=== PATIENT | male | born 1985 | race African-American/Black ===

== ENCOUNTER 2018-07-04 09:27 | Inpatient (IN) | payer OTHER ==
[2018-07-04 10:00] VITALS: BMI 29.2
--- NOTE | 2018-07-04 11:19 | HP ---
COWS - Scale Resting Pulse: 1= [place] 81-100 Sweatin= Chills/Flushing Restless Observation: 5= Unable to Sit Still Pupil Size: 1= Pupils >than Normal Bone or Joint Aches: 4=Acute Joint/Muscle Pain Runny Nose/ Eye Tearin= Runny Nose/Eyes GI Upset > 30mins: 2= Nausea/Diarrhea Tremor Observation: 0= None Yawning Observation: 1= 1-2x During Session Anxiety or Irritability: 4=Extreme Anxiety Goose Flesh Skin: 0=Smooth Skin COWS Score: 21 CIWA Score - Admission Criteria OASAS Guidelines: Admission for Medically Managed Detox: Requires at least one of the followin. CIWA greater than 12 2. Seizures within the past 24 hours 3. Delirium tremens within the past 24 hours 4. Hallucinations within the past 24 hours 5. Acute intervention needed for co occurring medical disorder 6. Acute intervention needed for co occurring psychiatric disorder 7. Severe withdrawal that cannot be handled at a lower level of care (continued vomiting, continued diarrhea, abnormal vital signs) requiring intravenous medication and/or fluids 8. Admission ROS [facility] - HPI Allergies/Adverse Reactions: Allergies Allergy/AdvReac Type Severity Reaction Status Date / Time No Known Allergies Allergy Verified 07/04/18 11:31 History of Present Illness: patient here requesting detox from heroin use , reports 1 bundle x 1 year , prior benzo use x 6 years exclusively , denies IVDU , latest use yesterday , first tx episode , never in detox before , current symptoms as above. Denies OD . xanax : 6-8 mg/day , + w/d seizure 8 mo ago went to [facility] denies other illicits tobacco : occasional use etoh : denies denies fentanyl use reports used illicit methadone 60 mg 2-3 days ago PMHx : denies PShx : denies PSych : denies , denies current SI / HI . Exam Limitations: Clinical Condition - Ebola screening Have you traveled outside of the country in the last 21 days: No Have you had contact with anyone from an Ebola affected area: No Have you been sick,other than usual withdrawal symptoms: No Do you have a fever: No - Review of Systems Constitutional: See HPI EENT: reports: Tearing, Nose Congestion, Other (deniesvision problems, denies dysphagia) Respiratory: reports: Shortness of Breath Cardiac: reports: No Symptoms Reported GI: reports: See HPI : reports: No Symptoms Reported Musculoskeletal: reports: See HPI Integumentary: reports: No Symptoms Reported Neuro: reports: See HPI Endocrine: reports: No Symptoms Reported Psychiatric: reports: Orientated x3, Anxious Patient History - Smoking Cessation Smoking history: Current some day smoker Have you smoked in the past 12 months: Yes Aproximately how many cigarettes per day: 2 Hx Chewing Tobacco Use: No Initiated information on smoking cessation: No - Substances Abused Heroin Route: Inhalation Frequency: Daily Amount used: 10 bags Age of first use: 32 Date of Last Use: 07/03/18 Xanax Route: Oral Frequency: Daily Amount used: 6-8 mg. Age of first use: 28 Date of Last Use: 07/03/18 Family Disease History - Family Disease History Family History: Denies Admission Physical Exam [facility] - Vital Signs Vital Signs: Vital Signs - 24 hr 07/04/18 09:55 Temperature 99.7 F H Pulse Rate 93 H Respiratory 18 Rate Blood Pressure 132/87 - Physical General Appearance: Yes: Disheveled, Tremorous, Sweating, Anxious HEENTM: Yes: EOMI, Hearing grossly Normal, Normocephalic, Normal Voice Respiratory: Yes: Chest Non-Tender, Lungs Clear, Normal Breath Sounds Neck: Yes: No masses,lesions,Nodules, Trachea in good position Cardiology: Yes: Regular Rhythm, Regular Rate, S1, S2, Tachycardia Abdominal: Yes: Normal Bowel Sounds, Non Tender, Soft Back: Yes: Normal Inspection Musculoskeletal: Yes: full range of Motion, Other (staggering gait) Extremities: Yes: Normal Capillary Refill, Non-Tender, Tremors Neurological: Yes: Motor Strength 5/5 Integumentary: Yes: Normal Color - Diagnostic (1) Opioid dependence Current Visit: Yes Status: Acute Qualifiers: Substance use status: in withdrawal Qualified Code(s): F11.23 - Opioid dependence with withdrawal (2) Sedative dependence Current Visit: Yes Status: Acute (3) Tobacco dependence Current Visit: Yes Status: Chronic (4) Withdrawal seizures Current Visit: Yes Status: Acute Qualifiers: Complication of substance-induced condition: uncomplicated Qualified Code(s ): F19.230 - Other psychoactive substance dependence with withdrawal, uncomplicated; R56.9 - Unspecified convulsions [facility] Breath Alcohol Content Breath Alcohol Content: 0 Urine Drug Screen - Results Drug Screen Negative: No Urine Drug Screen Results: OPI-Opiates, BZO-Benzodiazepines, MTD-Methadone, FEN- Fentanyl Inpatient Rehab Admission - Rehab Decision to Admit Inpatient rehab admission?: No
[2018-07-04] MEDS ORDERED: ACETAMINOPHEN 325 MG TABLET (FP) PO PRN (11:56)
[2018-07-04] MEDS ORDERED: MENTHOL/PHENOL 1 EACH UD MM PRN (11:56)
[2018-07-04] MEDS ORDERED: IBUPROFEN 400 MG TABLET (FP) PO PRN (11:56)
[2018-07-04] MEDS ORDERED: chlordiazePOXIDE HCL 25 MG CAPSULE PO PRN (11:56)
[2018-07-04] MEDS ORDERED: MAGNESIUM HYDROX 2400MG/30ML ORAL SUSPENSION 30 ML CUP PO PRN (11:56)
[2018-07-04] MEDS ORDERED: MAGNESIUM CITRATE 300 ML BOTTLE PO PRN (11:56)
[2018-07-04] MEDS ORDERED: MAG HYDROX/AL HYDROX/SIMETH 30 ML UNIT-DOSE CUP PO PRN (11:56)
[2018-07-04] MEDS ORDERED: METHADONE HCL 10 MG TABLET (FOR DETOX USE ONLY) PO ONE ×2 (12:15→23:00)
[2018-07-04] MEDS ORDERED: TUBERCULIN PPD 5 TU/0.1ML VIAL ID ONE (13:33)
--- NOTE | 2018-07-04 13:54 | PN ---
[facility] CIWA - CIWA Score Nausea/Vomitin-Mild Nausea/No Vomiting Muscle Tremors: 3 Anxiety: 3 Agitation: 3 Paroxysmal Sweats: 1-Minimal Palms Moist Orientation: 1-Uncertain about Date Tacttile Disturbances: 0-None Auditory Disturbances: 0-None Visual Disturbances: 0-None Headache: 1-Very Mild CIWA-Ar Total Score: 13 S Progress Note (SOAP) Subjective: patient stated that he using heroin and benzo daily and purpose of this detox admission is to detox from heroin and benzo + urine tox from opiate and benzo patient has CIWA = 13 and the patient preferred valium that librium make him dizzy and disoriented discontinue librium begin valium regimen Objective: 07/04/18 13:54 Vital Signs Temperature 97.0 F L 07/04/18 13:27 Pulse Rate 110 H 07/04/18 13:27 Respiratory Rate 18 07/04/18 13:27 Blood Pressure 133/87 07/04/18 13:27 O2 Sat by Pulse Oximetry (%) Assessment: 07/04/18 13:54 withdrawal sx Plan: continue detox
[2018-07-04] MEDS: diazePAM 5 MG TABLET PO SCH ×2 (15:09→22:41)
[2018-07-04] MEDS ORDERED: chlordiazePOXIDE HCL 25 MG CAPSULE PO SCH (17:00)
[2018-07-04] MEDS: diazePAM 5 MG TABLET PO PRN (17:21)
[2018-07-04] MEDS: MELATONIN 5 MG TABLETS PO PRN (22:38)
[2018-07-04] MEDS: THIAMINE HCL 100 MG TABLET (FP) PO SCH (22:39)
[2018-07-05] MEDS: diazePAM 5 MG TABLET PO PRN (00:34)
[2018-07-05] MEDS ORDERED: hydrOXYzine PAMOATE 25 MG CAPSULE (FP) PO ONE ×2 (00:39→20:00)
[2018-07-05] MEDS ORDERED: METHADONE HCL 10 MG TABLET (FOR DETOX USE ONLY) PO SCH (10:00)
[2018-07-05] MEDS: PRENATAL VITAMINS W/ FOLIC ACID TABLET (FP) PO SCH (10:04)
[2018-07-05] MEDS: diazePAM 5 MG TABLET PO SCH ×3 (10:04→22:02)
--- NOTE | 2018-07-05 10:28 | PN ---
[facility] CIWA - CIWA Score Nausea/Vomitin-Mild Nausea/No Vomiting Muscle Tremors: 3 Anxiety: 1-Mildly Anxious Agitation: 3 Paroxysmal Sweats: 1-Minimal Palms Moist Orientation: 1-Uncertain about Date Tacttile Disturbances: 0-None Auditory Disturbances: 0-None Visual Disturbances: 0-None Headache: 2-Mild CIWA-Ar Total Score: 12 [facility] COWS - Scale Resting Pulse: 0= [place] 80 or Below Sweatin= Chills/Flushing Restless Observation: 0= Sits Still Pupil Size: 0= Normal to Room Light Bone or Joint Aches: 2= Severe Diffuse Aches Runny Nose/ Eye Tearin= Nasal Congestion GI Upset > 30mins: 2= Nausea/Diarrhea Tremor Observation of Outstretched Hands: 2= Slight Tremor Visible Yawning Observation: 1= 1-2x During Session Anxiety or Irritability: 1=Feels Anxious/Irritable Goose Flesh Skin: 0=Smooth Skin COWS Score: 10 [facility] Progress Note (SOAP) Subjective: tremor body aches anxiety muscle cramping Objective: 07/05/18 10:28 Vital Signs Temperature 98.2 F 07/05/18 09:57 Pulse Rate 87 07/05/18 09:57 Respiratory Rate 20 07/05/18 09:57 Blood Pressure 132/68 07/05/18 09:57 O2 Sat by Pulse Oximetry (%) Laboratory Last Values HIV 1&2 Antibody Screen Negative 07/04/18 12:00 HIV P24 Antigen Negative 07/04/18 12:00 07/05/18 10:28 lab noted Assessment: 07/05/18 10:29 withdrawal sx Plan: continue detox patient is doing well with valium and methadone regimen
[2018-07-05 10:34] LABS: HEMATOCRIT 46.4 % (35.4-49); HEMOGLOBIN 15.6 GM/dL (11.7-16.9); MCH 31.2 pg (25.7-33.7); MCHC 33.5 g/dl (32.0-35.9); MEAN CELL VOLUME 92.9 fl (80-96); MEAN PLT VOLUME 9.6 fl (7.5-11.1); PLATELET COUNT 182 K/MM3 (134-434); RDW 13.1 % (11.9-15.9); WHITE BLOOD COUNT 3.9 K/mm3 (4.0-10.0)
[2018-07-05 10:52] LABS: ALBUMIN 4.6 g/dl (3.4-5.0); ALK PHOS 97 U/L (45-117); ANION GAP 9 MMOL/L (8-16); BILIRUBIN,TOTAL 0.8 mg/dL (0.2-1); BLOOD UREA NITROGEN 11 mg/dL (7-18); CALCIUM 9.9 mg/dL (8.5-10.1); CHLORIDE 105 mmol/L (98-107); CO2 26 mmol/L (21-32); GLUCOSE,RANDOM 102 mg/dL (74-106); POTASSIUM 4.3 mmol/L (3.5-5.1); SGOT/AST 11 U/L (15-37); SGPT/ALT 22 U/L (13-61); SODIUM 139 mmol/L (136-145); TOT PROT 8.3 g/dl (6.4-8.2)
[2018-07-05] MEDS ORDERED: hydrOXYzine PAMOATE 50 MG CAPSULE (FP) PO ONE (11:34)
--- NOTE | 2018-07-05 15:55 | CONSULT ---
[facility] Psychiatric Consult - Data Date of interview: 07/05/18 Admission source: [facility] Identifying data: First admission to [facility] [place] for this 33 AA male who requested a psychiatric evaluation prior to resuming quetiapine (prescribed during his incarceration in 2013) to address mood dysregulation and insomnia. Patient had presented to [facility] for detoxification (xanax, opioid). Interviewed on . Patient is single, a father of one, domiciled, unemployed and supported by relatives. Substance Abuse History: Discussed in this session. Details in current [facility] report as follows : Smoking history: Current some day smoker. Have you smoked in the past 12 months: Yes. Aproximately how many cigarettes per day: 2. Hx Chewing Tobacco Use: No. Initiated information on smoking cessation: No. - Substances Abused. Heroin. Route: Inhalation. Frequency: Daily. Amount used: 10 bags. Age of first use: 32. Date of Last Use: 07/03/18. Xanax. Route: Oral. Frequency: Daily. Amount used: 6-8 mg. Age of first use: 28. Date of Last Use: 07/03/18 Medical History: Patient endorses good general health. Psychiatric History: No reported history of psychiatric hospitalizations. Patient declares past treatment for MDD + Anxiety Disorder during his incarceration in 2013. Was medicated with wellbutrin, remeron and seroquel. No psychiatric follow-up care after his release from [facility]. Mr Arredondo has been lost to follow-up for years. Denies history of suicide attempts. Physical/Sexual Abuse/Trauma History: Patient denies. Additional Comment: Urine Drug Screen Results: OPI-Opiates, BZO-Benzodiazepines , MTD-Methadone, FEN-Fentanyl. Noted. Mental Status Exam - Mental Status Exam Alert and Oriented to: Time, Place, Person Cognitive Function: Good Patient Appearance: Well Groomed Mood: Withdrawn, Anxious, Apprehensive Affect: Mood Congruent, Constricted Patient Behavior: Fatigued, Cooperative Speech Pattern: Clear, Appropriate Voice Loudness: Normal Thought Process: Goal Oriented Thought Disorder: Not Present Hallucinations: Denies Suicidal Ideation: Denies Homicidal Ideation: Denies Insight/Judgement: Poor Sleep: Poorly, Difficulty falling asleep Appetite: Good Muscle strength/Tone: Normal Gait/Station: Normal Psychiatric Findings - Problem List ([place] 1, 2,3) (1) Opioid dependence Current Visit: Yes Status: Chronic Qualifiers: Substance use status: in withdrawal Qualified Code(s): F11.23 - Opioid dependence with withdrawal (2) Sedative dependence Current Visit: Yes Status: Chronic (3) Nicotine dependence Current Visit: Yes Status: Chronic (4) Substance induced mood disorder Current Visit: Yes Status: Suspected (5) Insomnia Current Visit: Yes Status: Chronic - Initial Treatment Plan Initial Treatment Plan: Psychoeducation. Sleep hygiene. Detoxification. Motivational rounds of encouragement to maintain sobriety. NA/AA meetings. Support. Relapse prevention : discussed with the patient. Seroquel 100 mg po hs. Ordered at patient's request. Side effects/benefits discussed. Consent ( verbal) granted to MD. [place].
[2018-07-05] MEDS ORDERED: chlordiazePOXIDE HCL 25 MG CAPSULE PO SCH (17:00)
[2018-07-05] MEDS: THIAMINE HCL 100 MG TABLET (FP) PO SCH (22:01)
[2018-07-05] MEDS: QUEtiapine FUMARATE 100 MG TABLET (FP) PO SCH (22:01)
[2018-07-05] MEDS: MELATONIN 5 MG TABLETS PO PRN (22:03)
[2018-07-06] MEDS: diazePAM 5 MG TABLET PO SCH ×3 (05:17→22:07)
[2018-07-06] MEDS ORDERED: METHADONE HCL 5 MG TABLET (FOR DETOX USE ONLY) PO SCH (10:00)
[2018-07-06] MEDS: diazePAM 5 MG TABLET PO PRN ×2 (10:26→20:07)
[2018-07-06] MEDS: PRENATAL VITAMINS W/ FOLIC ACID TABLET (FP) PO SCH (10:26)
--- NOTE | 2018-07-06 11:23 | PN ---
S CIWA - CIWA Score Nausea/Vomitin-Mild Nausea/No Vomiting Muscle Tremors: 2 Anxiety: 2 Agitation: 2 Paroxysmal Sweats: 1-Minimal Palms Moist Orientation: 1-Uncertain about Date Tacttile Disturbances: 0-None Auditory Disturbances: 0-None Visual Disturbances: 0-None Headache: 1-Very Mild CIWA-Ar Total Score: 10 [facility] COWS - Scale Resting Pulse: 0= [place] 80 or Below Sweatin= Chills/Flushing Restless Observation: 0= Sits Still Pupil Size: 0= Normal to Room Light Bone or Joint Aches: 1= Mild Discomfort Runny Nose/ Eye Tearin= Nasal Congestion GI Upset > 30mins: 1= Stomach Cramp Tremor Observation of Outstretched Hands: 1= Tremor [place], Not Seen Yawning Observation: 0= None Anxiety or Irritability: 1=Feels Anxious/Irritable Goose Flesh Skin: 0=Smooth Skin COWS Score: 6 [facility] Progress Note (SOAP) Subjective: anxiousness tremor otherwise doing ok discuss lab result patient acknowledge of safer sex self protection mechanism Objective: 07/06/18 11:23 Vital Signs Temperature 99.1 F 07/06/18 09:48 Pulse Rate 67 07/06/18 09:48 Respiratory Rate 20 07/06/18 09:48 Blood Pressure 99/56 L 07/06/18 09:48 O2 Sat by Pulse Oximetry (%) Laboratory Last Values WBC 3.9 K/mm3 (4.0-10.0) L 07/05/18 06:00 RBC 5.00 M/mm3 (4.00-5.60) 07/05/18 06:00 Hgb 15.6 GM/dL (11.7-16.9) 07/05/18 06:00 Hct 46.4 % (35.4-49) 07/05/18 06:00 MCV 92.9 fl (80-96) 07/05/18 06:00 MCH 31.2 pg (25.7-33.7) 07/05/18 06:00 MCHC 33.5 g/dl (32.0-35.9) 07/05/18 06:00 RDW 13.1 % (11.9-15.9) 07/05/18 06:00 Plt Count 182 K/MM3 (134-434) 07/05/18 06:00 MPV 9.6 fl (7.5-11.1) 07/05/18 06:00 Sodium 139 mmol/L (136-145) 07/05/18 06:00 Potassium 4.3 mmol/L (3.5-5.1) 07/05/18 06:00 Chloride 105 mmol/L (98-107) 07/05/18 06:00 Carbon Dioxide 26 mmol/L (21-32) 07/05/18 06:00 Anion Gap 9 MMOL/L (8-16) 07/05/18 06:00 BUN 11 mg/dL (7-18) 07/05/18 06:00 Creatinine 1.0 mg/dL (0.55-1.3) 07/05/18 06:00 Creat Clearance w eGFR > 60 (>60) 07/05/18 06:00 Random Glucose 102 mg/dL (74-106) 07/05/18 06:00 Calcium 9.9 mg/dL (8.5-10.1) 07/05/18 06:00 Total Bilirubin 0.8 mg/dL (0.2-1) 07/05/18 06:00 AST 11 U/L (15-37) L 07/05/18 06:00 ALT 22 U/L (13-61) 07/05/18 06:00 Alkaline Phosphatase 97 U/L (45-117) 07/05/18 06:00 Total Protein 8.3 g/dl (6.4-8.2) H 07/05/18 06:00 Albumin 4.6 g/dl (3.4-5.0) 07/05/18 06:00 RPR Titer Nonreactive (NONREACTIVE) 07/05/18 06:00 HIV 1&2 Antibody Screen Negative 07/04/18 12:00 HIV P24 Antigen Negative 07/04/18 12:00 lab noted Assessment: 07/06/18 11:23 withdrawal sx Plan: continue detox
[2018-07-06] MEDS ORDERED: hydrOXYzine PAMOATE 50 MG CAPSULE (FP) PO ONE (12:15)
[2018-07-06] MEDS ORDERED: chlordiazePOXIDE 5 MG CAPSULE PO SCH (17:00)
[2018-07-06] MEDS ORDERED: hydrOXYzine PAMOATE 25 MG CAPSULE (FP) PO PRN (19:43)
[2018-07-06] MEDS: THIAMINE HCL 100 MG TABLET (FP) PO SCH (22:06)
[2018-07-06] MEDS: QUEtiapine FUMARATE 100 MG TABLET (FP) PO SCH (22:06)
[2018-07-06] MEDS: MELATONIN 5 MG TABLETS PO PRN (22:07)
[2018-07-07 09:22] VITALS: BP 135/84; PULSE 80; TEMP 99.4
[2018-07-07] MEDS ORDERED: hydrOXYzine PAMOATE 50 MG CAPSULE (FP) PO PRN (09:30)
[2018-07-07] MEDS: PRENATAL VITAMINS W/ FOLIC ACID TABLET (FP) PO SCH (09:51)
[2018-07-07] MEDS ORDERED: diazePAM 5 MG TABLET PO SCH (10:00)
[2018-07-07] MEDS ORDERED: METHADONE HCL 10 MG TABLET (FOR DETOX USE ONLY) PO SCH (10:00)
[2018-07-07] MEDS: diazePAM 5 MG TABLET PO PRN (11:23)
--- NOTE | 2018-07-07 16:04 | PN ---
[facility] Progress Note (SOAP) Subjective: Chills, Sweating, Anxious, Body Aches, Fatigue. Objective: PATIENT A & O X 3, OBSERVED AMBULATING ON UNIT. IN NO ACUTE DISTRESS. 07/07/18 16:03 Vital Signs Temperature 99.4 F 07/07/18 09:21 Pulse Rate 80 07/07/18 09:21 Respiratory Rate 18 07/07/18 09:21 Blood Pressure 135/84 07/07/18 09:21 O2 Sat by Pulse Oximetry (%) Laboratory Tests 07/04/18 07/05/18 07/05/18 12:00 06:00 06:00 WBC 3.9 L RBC 5.00 Hgb 15.6 Hct 46.4 MCV 92.9 MCH 31.2 MCHC 33.5 RDW 13.1 Plt Count 182 MPV 9.6 Sodium 139 Potassium 4.3 Chloride 105 Carbon Dioxide 26 Anion Gap 9 BUN 11 Creatinine 1.0 Creat Clearance w eGFR > 60 Random Glucose 102 Calcium 9.9 Total Bilirubin 0.8 AST 11 L ALT 22 Alkaline Phosphatase 97 Total Protein 8.3 H Albumin 4.6 RPR Titer HIV 1&2 Antibody Screen Negative HIV P24 Antigen Negative 07/05/18 06:00 WBC RBC Hgb Hct MCV MCH MCHC RDW Plt Count MPV Sodium Potassium Chloride Carbon Dioxide Anion Gap BUN Creatinine Creat Clearance w eGFR Random Glucose Calcium Total Bilirubin AST ALT Alkaline Phosphatase Total Protein Albumin RPR Titer Nonreactive HIV 1&2 Antibody Screen HIV P24 Antigen labs noted. Assessment: 07/07/18 16:03 WITHDRAWAL SYMPTOMS. Plan: CONTINUE DETOX. PRN VISTARIL PO FOR ANXIETY (PATIENT'S REQUEST). INCREASE DAILY PO FLUID INTAKE.
--- NOTE | 2018-07-07 16:11 | DS ---
[facility] Detox Discharge Summary Admission Date: 07/04/18 Discharge Date: 07/07/18 - History Present History: Opioid Dependence, Sedative Dependence Additional Comments: DESPITE ENCOURAGEMENT FROM NUCLEAR TECHNOLOGIST AND FROM NURSING AND COUNSELING STAFF, PATIENT DOES NOT WISH TO REMAIN TO COMPLETE DETOX REGIMEN. PATIENT EARLIER PRESCRIBED VISTARIL PO TO HELP REDUCE ANXIETY (AT PATIENT;S REQUEST). HOWEVER, PATIENT STILL ELECTS TO LEAVE DETOX UNIT AGAINST MEDICAL ADVICE. RISKS OF LEAVING DETOX UNIT AGAINST MEDICAL ADVICE AND PRIOR TO COMPLETION OF DETOX REGIMEN EXPLAINED TO PATIENT. PATIENT ADVISED TO GO IMMEDIATELY TO NEAREST ER SHOULD ANY INTOLERABLE DETOX SYMPTOMS DEVELOP AT ANY TIME. PATIENT VERBALIZED UNDERSTANDING OF ALL INFORMATION / RECOMMENDATIONS PRESENTED TO HIM PRIOR TO DEPARTURE FROM DETOX UNIT. PATIENT LEFT DETOX UNIT IN STABLE MEDICAL CONDITION. Pertinent Past History: History of Seizures (Due To Withdrawal), Tobacco Dependence, Insomnia. - Physical Exam Results Vital Signs: Vital Signs Temperature 99.4 F 07/07/18 09:21 Pulse Rate 80 07/07/18 09:21 Respiratory Rate 18 07/07/18 09:21 Blood Pressure 135/84 07/07/18 09:21 O2 Sat by Pulse Oximetry (%) Pertinent Admission Physical Exam Findings: WITHDRAWAL SYMPTOMS. Laboratory Tests 07/04/18 07/05/18 07/05/18 12:00 06:00 06:00 WBC 3.9 L RBC 5.00 Hgb 15.6 Hct 46.4 MCV 92.9 MCH 31.2 MCHC 33.5 RDW 13.1 Plt Count 182 MPV 9.6 Sodium 139 Potassium 4.3 Chloride 105 Carbon Dioxide 26 Anion Gap 9 BUN 11 Creatinine 1.0 Creat Clearance w eGFR > 60 Random Glucose 102 Calcium 9.9 Total Bilirubin 0.8 AST 11 L ALT 22 Alkaline Phosphatase 97 Total Protein 8.3 H Albumin 4.6 RPR Titer HIV 1&2 Antibody Screen Negative HIV P24 Antigen Negative 07/05/18 06:00 WBC RBC Hgb Hct MCV MCH MCHC RDW Plt Count MPV Sodium Potassium Chloride Carbon Dioxide Anion Gap BUN Creatinine Creat Clearance w eGFR Random Glucose Calcium Total Bilirubin AST ALT Alkaline Phosphatase Total Protein Albumin RPR Titer Nonreactive HIV 1&2 Antibody Screen HIV P24 Antigen LABS NOTED. - Treatment Hospital Course: Detoxed Safely - Medication Discharge Medications: Ambulatory Orders NK [No Known Home Medication] 07/04/18 - Diagnosis (1) Withdrawal seizures Current Visit: Yes Status: Acute Qualifiers: Complication of substance-induced condition: uncomplicated Qualified Code(s ): F19.230 - Other psychoactive substance dependence with withdrawal, uncomplicated; R56.9 - Unspecified convulsions (2) Insomnia Current Visit: Yes Status: Chronic Qualifiers: Insomnia type: unspecified Qualified Code(s): G47.00 - Insomnia, unspecified (3) Opioid dependence Current Visit: Yes Status: Chronic Qualifiers: Substance use status: in withdrawal Qualified Code(s): F11.23 - Opioid dependence with withdrawal (4) Sedative dependence Current Visit: Yes Status: Chronic (5) Tobacco dependence Current Visit: Yes Status: Chronic (6) Substance induced mood disorder Current Visit: Yes Status: Suspected - AMA Did Patient Leave Against Medical Advice: Yes (PATIENT DID NOT WISH TO REMAIN TO COMPLETE DETOX REGIMEN.)
[2018-07-07] MEDS ORDERED: chlordiazePOXIDE HCL 10 MG CAPSULE PO SCH (17:00)
[2018-07-08] MEDS ORDERED: diazePAM 5 MG TABLET PO ONE (06:00)
[2018-07-08] MEDS ORDERED: METHADONE HCL 5 MG TABLET (FOR DETOX USE ONLY) PO SCH (06:00)
== END 2018-07-07 12:15 | disposition left against medical advice (07) | DRG 770 ==
LOC: YASAS 09:27 → Y3N 11:55
PROVIDERS: ADMIT Surgery; ATTEND Surgery
PROC: HZ2ZZZZ Detoxification Services for Substance Abuse Treatment (ICD-10-PCS; principal; 2018-07-04)
DX: F11.23 Opioid dependence with withdrawal (principal); F13.230 Sedative, hypnotic or anxiolytic dependence with withdrawal, uncomplicated; F17.210 Nicotine dependence, cigarettes, uncomplicated; F19.24 Other psychoactive substance dependence with psychoactive substance-induced mood disorder; G47.00 Insomnia, unspecified; R00.0 Tachycardia, unspecified; Z86.69 Personal history of other diseases of the nervous system and sense organs
CPT/HCPCS: 36415; 80053; 85027; 86593; 87389

== ENCOUNTER 2018-12-06 10:27 | Inpatient (IN) | payer OTHER ==
[2018-12-06 11:11] VITALS: BMI 31.8
--- NOTE | 2018-12-06 14:27 | HP ---
CIWA Score Nausea/Vomitin Muscle Tremors: 2 Anxiety: 2 Agitation: 2 Paroxysmal Sweats: 1-Minimal Palms Moist Orientation: 0-Oriented Tacttile Disturbances: 1-Very Mild Itch/Numbness Auditory Disturbances: 1-Very Mild Visual Disturbances: 0-None Headache: 2-Mild CIWA-Ar Total Score: 13 - Admission Criteria OASAS Guidelines: Admission for Medically Managed Detox: Requires at least one of the followin. CIWA greater than 12 2. Seizures within the past 24 hours 3. Delirium tremens within the past 24 hours 4. Hallucinations within the past 24 hours 5. Acute intervention needed for co occurring medical disorder 6. Acute intervention needed for co occurring psychiatric disorder 7. Severe withdrawal that cannot be handled at a lower level of care (continued vomiting, continued diarrhea, abnormal vital signs) requiring intravenous medication and/or fluids 8. Admission ROS [facility] - HPI Chief Complaint: i need help to stop drinking alcohol,xanax,heroin abused Allergies/Adverse Reactions: Allergies Allergy/AdvReac Type Severity Reaction Status Date / Time No Known Allergies Allergy Verified 12/06/18 11:05 History of Present Illness: this 33 years old male with alcohol and xanax dependence,heroin abused,seeking detox,withdrawal symptom, had previous admissions before,last treatment [facility] 07/04/18 to 07/07/18 dental cavity left lower for 4 to 6 months nicotine dependence 5 cigarette/day,does not need nicotine replacement plan for rehab after detox longest sobriety 3 and half year Exam Limitations: No Limitations - Ebola screening Have you traveled outside of the country in the last 21 days: No Have you had contact with anyone from an Ebola affected area: No Do you have a fever: No - Review of Systems Constitutional: Malaise, Night Sweats, Changes in sleep EENT: reports: Tearing, Nose Congestion Respiratory: reports: No Symptoms reported Cardiac: reports: No Symptoms Reported GI: reports: Nausea, Poor Appetite, Indigestion : reports: No Symptoms Reported Musculoskeletal: reports: Back Pain, Muscle Pain Integumentary: reports: Dryness Neuro: reports: Headache, Tremors Endocrine: reports: No Symptoms Reported Hematology: reports: No Symptoms Reported Psychiatric: reports: No Sypmtoms Reported, Judgement Intact, Mood/Affect Appropiate, Orientated x3 Other Systems: Reviewed and Negative Patient History - Patient Medical History Hx Anemia: No Hx Asthma: No Hx Chronic Obstructive Pulmonary Disease (COPD): No Hx Cardiac Disorders: No Hx Congestive Heart Failure: No Hx Hypertension: No Hx Hypercholesterolemia: No Hx Seizures: No Hx Dementia: No Hx Diabetes: No Hx Gastrointestinal Disorders: No Hx Liver Disease: No Hx Genitourinary Disorders: No Hx Sexually Transmitted Disorders: No Hx Renal Disease (ESRD): No Hx Thyroid Disease: No (last 07/11 negative) Hx Human Immunodeficiency Virus (HIV): No Hx Hepatitis C: No Hx Depression: No Hx Suicide Attempt: No Hx Bipolar Disorder: No Hx Schizophrenia: No Other Medical History: no suicidal,no homicidal - Patient Surgical History Past Surgical History: No Hx Neurologic Surgery: No Hx Cataract Extraction: No Hx Cardiac Surgery: No Hx Lung Surgery: No Hx Breast Surgery: No Hx Breast Biopsy: No Hx Abdominal Surgery: No Hx Appendectomy: No Hx Cholecystectomy: No Hx Genitourinary Surgery: No Hx Section: No Hx Orthopedic Surgery: Yes (laft ankle fx at age of 26 years) Anesthesia Reaction: No - PPD History Previous Implant?: Yes Documented Results: Negative w/proof Implanted On Prior [facility] Admission?: Yes Date: 07/06/18 Results: 0 mm PPD to be Administered?: No - Smoking Cessation Smoking history: Current some day smoker Have you smoked in the past 12 months: Yes Aproximately how many cigarettes per day: 5 Cigars Per Day: 0 Hx Chewing Tobacco Use: No Initiated information on smoking cessation: Yes 'Breaking Loose' booklet given: 12/06/18 - Substance & Tx. History Hx Alcohol Use: Yes Hx Substance Use: Yes Substance Use Type: Alcohol, Heroin, Tranquilizers - Substances abused Alcohol Substance route: Oral Frequency: 3-6 times per week Amount used: 1 PINT OF VODKA Age of first use: 16 Date of last use: 12/03/18 Alprazolam (Xanax) Substance route: Oral Frequency: Daily Amount used: 3-4 STICKS 6 mgs to 8 mgs/day Age of first use: 21 Date of last use: 12/05/18 Heroin Substance route: Inhalation Frequency: 1-2 times per week Amount used: 1 BAG Age of first use: 32 Date of last use: 12/03/18 Family Disease History - Family Disease History Family History: Denies Admission Physical Exam [facility] - Vital Signs Vital Signs: Vital Signs - 24 hr 12/06/18 12/06/18 11:03 12:46 Temperature 98.4 F 98.4 F Pulse Rate 67 67 Respiratory 16 16 Rate Blood Pressure 92/56 L 92/56 L - Physical General Appearance: Yes: Moderate Distress, Tremorous, Irritable, Sweating, Anxious HEENTM: Yes: Normal ENT Inspection, SUNNI, Pharynx Normal, Other (dental cavity left lower molar) Respiratory: Yes: Lungs Clear, Normal Breath Sounds, No Respiratory Distress Neck: Yes: Within Normal Limits, Supple, Trachea in good position Breast: Yes: Within Normal Limits Cardiology: Yes: Within Normal Limits, Regular Rhythm, Regular Rate, S1, S2 Abdominal: Yes: Within Normal Limits, Normal Bowel Sounds, Non Tender, Flat, Soft Genitourinary: Yes: Within Normal Limits Back: Yes: Muscle Spasm Musculoskeletal: Yes: Back pain, Muscle Pain Extremities: Yes: Tremors Neurological: Yes: industrial production manager II-XII NML intact, Fully Oriented, Alert, Motor Strength 5/5 Integumentary: Yes: Dry Lymphatic: Yes: Within Normal Limits - Diagnostic (1) Uncomplicated sedative, hypnotic or anxiolytic withdrawal Current Visit: Yes Status: Acute (2) Alcohol dependence Current Visit: Yes Status: Acute (3) Heroin abuse Current Visit: Yes Status: Acute (4) Nicotine dependence Current Visit: No Status: Chronic (5) Dental cavity Current Visit: Yes Status: Acute Cleared for Admission [facility] - Detox or Rehab [facility] Level of Care: Medically Managed Detox Regimen/Protocol: Valium Breathalyzer - Breathalyzer Breathalyzer: 0 Urine Drug Screen - Test Device Lot number: [id number] Expiration date: 09/19/20 - Control Is test valid?: Yes - Results Drug screen NEGATIVE: No Urine drug screen results: MET-Methamphetamine, FEN-Fentanyl, MOP-Opiates, OXY- Oxycodone, MTD-Methadone, BZO-Benzodiazepines, BUP-Suboxone
[2018-12-06] MEDS ORDERED: MAG HYDROX/AL HYDROX/SIMETH 30 ML UNIT-DOSE CUP PO PRN (14:50)
[2018-12-06] MEDS ORDERED: MAGNESIUM HYDROX 2400MG/30ML ORAL SUSPENSION 30 ML CUP PO PRN (14:50)
[2018-12-06] MEDS ORDERED: BISMUTH SUBSALICYLATE 262 MG/15 ML BTL PO PRN (14:50)
[2018-12-06] MEDS ORDERED: ACETAMINOPHEN 325 MG TABLET (FP) PO PRN ×2 (14:50)
[2018-12-06] MEDS ORDERED: MENTHOL/PHENOL 1 EACH UD MM PRN (14:50)
[2018-12-06] MEDS ORDERED: MAGNESIUM CITRATE 300 ML BOTTLE PO PRN (14:50)
[2018-12-06] MEDS ORDERED: MELATONIN 5 MG TABLETS PO PRN (14:50)
[2018-12-06] MEDS ORDERED: hydrOXYzine HCL 25 MG TABLET (FP) PO PRN (14:50)
[2018-12-06] MEDS ORDERED: diazePAM 5 MG TABLET PO PRN (14:50)
[2018-12-06] MEDS ORDERED: IBUPROFEN 400 MG TABLET (FP) PO PRN (14:50)
[2018-12-06] MEDS ORDERED: METHOCARBAMOL 500 MG TABLET PO PRN (14:50)
--- NOTE | 2018-12-06 15:47 | PN ---
[facility] Progress Note Note: called by nurse stated that patient would like regimen to be changed from valium to librium regimen
[2018-12-06] MEDS: BENZOCAINE 20 % GEL TUBE MM PRN (17:08)
[2018-12-06] MEDS: chlordiazePOXIDE HCL 25 MG CAPSULE PO SCH ×2 (17:08→22:14)
[2018-12-06] MEDS: chlordiazePOXIDE HCL 25 MG CAPSULE PO PRN (20:07)
[2018-12-06] MEDS ORDERED: THIAMINE HCL 100 MG TABLET (FP) PO SCH (22:00)
[2018-12-06] MEDS ORDERED: diazePAM 5 MG TABLET PO SCH (22:00)
[2018-12-07] MEDS: chlordiazePOXIDE HCL 25 MG CAPSULE PO SCH ×3 (06:37→16:56)
[2018-12-07] MEDS ORDERED: PRENATAL VITAMINS W/ FOLIC ACID TABLET (FP) PO SCH (10:00)
[2018-12-07 10:21] LABS: HEMATOCRIT 41.4 % (35.4-49); HEMOGLOBIN 13.5 GM/dL (11.7-16.9); MCH 30.3 pg (25.7-33.7); MCHC 32.7 g/dl (32.0-35.9); MEAN CELL VOLUME 92.7 fl (80-96); MEAN PLT VOLUME 8.8 fl (7.5-11.1); RBC 4.47 M/mm3 (4.00-5.60); RDW 13.7 % (11.9-15.9); WHITE BLOOD COUNT 5.4 K/mm3 (4.0-10.0)
[2018-12-07 10:32] LABS: PLATELET COUNT 203 K/MM3 (134-434)
[2018-12-07 10:41] LABS: ALBUMIN 3.8 g/dl (3.4-5.0); BILIRUBIN,TOTAL 0.5 mg/dL (0.2-1); BLOOD UREA NITROGEN 8.6 mg/dL (7-18); CREATININE 1.1 mg/dL (0.55-1.3); POTASSIUM 4.5 mmol/L (3.5-5.1)
--- NOTE | 2018-12-07 11:49 | PN ---
[facility] - CIWA Score Nausea/Vomitin-No Nausea/No Vomiting Muscle Tremors: 1-None Visible, but [place] Anxiety: 2 Agitation: 0-Normal Activity Paroxysmal Sweats: 2 Orientation: 0-Oriented Tacttile Disturbances: 2-Mild Itch/Numbness/Burn Auditory Disturbances: 0-None Visual Disturbances: 1-Very Mild Sensitivity Headache: 2-Mild CIWA-Ar Total Score: 10 S Progress Note (SOAP) Subjective: c/o of interrupted sleep, chills, sweats Objective: 12/07/18 11:46 Vital Signs Temperature 95.9 F L 12/07/18 09:14 Pulse Rate 68 12/07/18 09:14 Respiratory Rate 18 12/07/18 09:14 Blood Pressure 126/68 12/07/18 09:14 O2 Sat by Pulse Oximetry (%) Laboratory Last Values WBC 5.4 K/mm3 (4.0-10.0) 12/07/18 07:00 RBC 4.47 M/mm3 (4.00-5.60) 12/07/18 07:00 Hgb 13.5 GM/dL (11.7-16.9) 12/07/18 07:00 Hct 41.4 % (35.4-49) 12/07/18 07:00 MCV 92.7 fl (80-96) 12/07/18 07:00 MCH 30.3 pg (25.7-33.7) 12/07/18 07:00 MCHC 32.7 g/dl (32.0-35.9) 12/07/18 07:00 RDW 13.7 % (11.9-15.9) 12/07/18 07:00 Plt Count 203 K/MM3 (134-434) 12/07/18 07:00 MPV 8.8 fl (7.5-11.1) 12/07/18 07:00 Sodium 141 mmol/L (136-145) 12/07/18 07:00 Potassium 4.5 mmol/L (3.5-5.1) 12/07/18 07:00 Chloride 105 mmol/L (98-107) 12/07/18 07:00 Carbon Dioxide 32 mmol/L (21-32) 12/07/18 07:00 Anion Gap 4 MMOL/L (8-16) L 12/07/18 07:00 BUN 8.6 mg/dL (7-18) 12/07/18 07:00 Creatinine 1.1 mg/dL (0.55-1.3) 12/07/18 07:00 Est GFR (CKD-EPI)AfAm 101.69 12/07/18 07:00 Est GFR (CKD-EPI)NonAf 87.74 12/07/18 07:00 Random Glucose 96 mg/dL (74-106) 12/07/18 07:00 Calcium 9.0 mg/dL (8.5-10.1) 12/07/18 07:00 Total Bilirubin 0.5 mg/dL (0.2-1) 12/07/18 07:00 AST 16 U/L (15-37) 12/07/18 07:00 ALT 30 U/L (13-61) 12/07/18 07:00 Alkaline Phosphatase 89 U/L (45-117) 12/07/18 07:00 Total Protein 7.0 g/dl (6.4-8.2) 12/07/18 07:00 Albumin 3.8 g/dl (3.4-5.0) 12/07/18 07:00 HIV 1&2 Antibody Screen Negative 12/07/18 07:00 HIV P24 Antigen Negative 12/07/18 07:00 labs reviewed Assessment: 12/07/18 11:46 Patient AO x3 no acute distress full ROM, ambulating in the unit Plan: increase PO fluids continue detox continue to monitor
[2018-12-07] MEDS: BENZOCAINE 20 % GEL TUBE MM PRN (12:15)
[2018-12-07] MEDS: chlordiazePOXIDE HCL 25 MG CAPSULE PO PRN (12:20)
[2018-12-07 18:02] VITALS: BP 115/72; PULSE 66; TEMP 98.7
[2018-12-08] MEDS ORDERED: chlordiazePOXIDE HCL 25 MG CAPSULE PO SCH (05:00)
[2018-12-08] MEDS ORDERED: diazePAM 5 MG TABLET PO SCH (06:00)
[2018-12-09] MEDS ORDERED: chlordiazePOXIDE HCL 10 MG CAPSULE PO PRN
[2018-12-09] MEDS ORDERED: chlordiazePOXIDE HCL 10 MG CAPSULE PO SCH (05:00)
[2018-12-09] MEDS ORDERED: diazePAM 5 MG TABLET PO ONE (06:00)
[2018-12-10] MEDS ORDERED: chlordiazePOXIDE HCL 10 MG CAPSULE PO SCH (05:00)
[2018-12-11] MEDS ORDERED: chlordiazePOXIDE HCL 10 MG CAPSULE PO ONE (05:00)
== END 2018-12-07 18:37 | disposition left against medical advice (07) | DRG 770 ==
LOC: YASAS 10:27 → Y3N 14:57
PROVIDERS: ADMIT Surgery; ATTEND Surgery
PROC: HZ2ZZZZ Detoxification Services for Substance Abuse Treatment (ICD-10-PCS; principal; 2018-12-06)
DX: F10.230 Alcohol dependence with withdrawal, uncomplicated (principal); F13.230 Sedative, hypnotic or anxiolytic dependence with withdrawal, uncomplicated; F11.10 Opioid abuse, uncomplicated; F17.210 Nicotine dependence, cigarettes, uncomplicated; K02.9 Dental caries, unspecified
CPT/HCPCS: 36415; 80053; 85027; 86593; 87389